=== PATIENT | male | born 1975 | race African-American/Black ===

== ENCOUNTER 2023-07-18 07:19 | Emergency (ER) | payer MEDICAID, OTHER ==
[~2023-07-18] VITALS: Ht 177.8 cm; Wt 100.0 kg
[2023-07-18 07:19] VITALS: PULSE 0; RESP 0; O2SAT 68
[2023-07-18] MEDS ORDERED: SODIUM BICARBONATE 8.4% INJ 50ML SYRINGE IV ONE (07:20)
[2023-07-18] MEDS ORDERED: EPINEPHrine HCL 1 MG/10 ML SYRG IV ONE (07:20)
[2023-07-18] MEDS ORDERED: EPINEPHrine HCL 1 MG/10 ML SYRG ONE (07:34)
== END 2023-07-18 10:56 ==
LOC: ER 07:19 → EDBD 07:19 → ER 10:56
DX: I46.9 Cardiac arrest, cause unspecified (principal); I10 Essential (primary) hypertension
CPT/HCPCS: 31500; 92950; 99285; J0171